=== PATIENT | female | born 1985 | race Caucasian/White ===

== ENCOUNTER 2019-06-01 20:33 | Emergency (ER) | payer MEDICAID ==
[~2019-06-01] VITALS: Ht 160 cm; Wt 97.7 kg
[~2019-06-01 20:33] MED LIST: COM10T PO; CYCL-1 PO; DICY20TA33 PO; FAMO-1 PO; HYDR-4383 PO; LEVO750T PO; ONDA8TAB6 PO
[2019-06-01] MEDS ORDERED: naproxen 500mg tablet PO ONE (21:35)
[2019-06-01] MEDS ORDERED: HYDROcodone/acetaminophen 5mg/325mg tablet PO ONE (21:35)
[2019-06-01] MEDS ORDERED: NAPR-56 PO (21:39)
--- NOTE | 2019-06-01 21:50 | NUR ---
PT GIVEN CRUTCHES AND ANKLES WRAPPED. SHE REPORTS SHE CAN PUT SOME WEIGHT ON THE RIGHT FOOT, BUT NOT ON THE LEFT FOOT. MD REPORTED TO HER SHE HAS A "SEVERE SPRAIN" . GIVEN NAPROXIN AND NORCO PRIOR TO DC.
[2019-06-01 21:51] VITALS: BP 110/77
== END 2019-06-01 21:53 | disposition home or self-care (01) ==
LOC: ER 20:34
DX: S93.401A Sprain of unspecified ligament of right ankle, initial encounter (principal); S93.402A Sprain of unspecified ligament of left ankle, initial encounter; M25.572 Pain in left ankle and joints of left foot; M25.571 Pain in right ankle and joints of right foot; G89.29 Other chronic pain; Z87.440 Personal history of urinary (tract) infections; Z90.49 Acquired absence of other specified parts of digestive tract; Z79.899 Other long term (current) drug therapy; W22.8XXA Striking against or struck by other objects, initial encounter; Y93.89 Activity, other specified; Y92.89 Other specified places as the place of occurrence of the external cause; Y99.8 Other external cause status
CPT/HCPCS: 29515; 73610; 73630; 99283; 99284